=== PATIENT | male | born 1945 | race Caucasian/White ===

== ENCOUNTER 2017-08-03 09:30 | Emergency (ER) | payer MEDICARE ==
[~2017-08-03] VITALS: Ht 172.7 cm; Wt 63.6 kg
[~2017-08-03 09:30] MED LIST: KEFLEX500 MG PO; MOTRIN600 MG OR
[2017-08-03] MEDS ORDERED: MULTIVITAMI1 PO (09:56)
[2017-08-03] MEDS ORDERED: VITAMIN B-12500 MCG PO (09:56)
[2017-08-03] MEDS ORDERED: FLUOROURACIL 5% TOP (09:57)
[2017-08-03 10:38] LABS: URINE BILIRUBIN - DIPSTICK NEGATIVE (NEGATIVE); URINE BLOOD DIPSTICK NEGATIVE (NEGATIVE); URINE CLARITY CLOUDY; URINE COLOR YELLOW; URINE GLUCOSE - DIPSTICK NEGATIVE (NEGATIVE); URINE KETONE NEGATIVE (NEGATIVE); URINE LEUK ESTERASE TRACE (NEGATIVE); URINE NITRITE - DIPSTICK NEGATIVE (Negative); URINE PH >=9.0 (4.5-8.0); URINE PROTEIN - DIPSTICK 100 mg/dL (NEG-TRACE); URINE SPECIFIC GRAVITY <=1.005; URINE UROBILINOGEN - DIPSTICK 0.2 E.U./dL (0.2)
[2017-08-03 10:38] LABS: HEMATOCRIT 34.1 % (39.0-50.0); HEMOGLOBIN 11.2 g/dl (14.0-18.0); IMMATURE GRANULOCYTES 0.7 % (0.0-1.0); MEAN CELL VOLUME 99.4 fL CALC (80.0-100.0); MEAN CORPUSCULAR HGB 32.7 pG CALC (26.0-32.0); MEAN CORPUSCULAR HGB CONC 32.8 g/L CALC (32.0-36.0); NEUT# 12.11 thou/uL (1.82-7.42); RED BLOOD COUNT 3.43 mill/uL (4.70-6.10)
[2017-08-03 10:44] LABS: URINE RBC 0-2 RBC/hpf (0-5)
[2017-08-03 10:45] LABS: URINE AMORPH SEDIMENT MANY hpf (NONE-FER); URINE MUCUS MODERATE hpf (NONE-FEW); URINE TRIP PHOS CRYSTALS MANY lpf
[2017-08-03 10:56] LABS: ALBUMIN 4.1 g/dL (3.2-5.0); ALKALINE PHOSPHATASE 76 u/l (38-126); AMYLASE < 30 u/l (30-110); ANION GAP 18 (6-22 (CALC)); BILIRUBIN, TOTAL 0.8 mg/dL (0.0-1.4); BUN 25 mg/dL (8-23); BUN/CREATININE RATIO 18 (12-20 (CALC)); CALCIUM 9.6 mg/dL (8.4-10.2); CARBON DIOXIDE 22 mmol/l (22-30); CHLORIDE 103 mmol/l (95-108); CREATININE 1.4 mg/dL (0.7-1.3); GFR 50 ML/MIN (>=60 (CALC)); GFR FOR AFR.AMER. 60 ML/MIN (>=60 (CALC)); GLUCOSE 134 mg/dL (82-115); LIPASE 18 u/l (23-300); POTASSIUM 4.3 mmol/l (3.5-5.1); PROTHROMBIN TIME 11.3 SECONDS (9.0-12.5); SGOT/AST 27 u/l (19-48); SGPT/ALT 35 u/l (11-66); SODIUM 138 mmol/l (137-146)
[2017-08-03 11:08] LABS: MYOGLOBIN 45 ng/mL (0 - 121)
[2017-08-03] MEDS ORDERED: ZOFRAN4 MG/TAB PO (15:01)
[2017-08-03] MEDS ORDERED: CEPHALEXIN500 MG PO (15:01)
[2017-08-03 15:48] VITALS: BP 136/75
[2017-08-04] MEDS ORDERED: BACTRIM DS1 TAB PO (08:17)
== END 2017-08-03 15:46 | disposition home or self-care (01) ==
LOC: ED 09:30
PROVIDERS: Emergency Medicine
DX: N39.0 Urinary tract infection, site not specified (principal); R53.1 Weakness; I71.02 Dissection of abdominal aorta; C67.9 Malignant neoplasm of bladder, unspecified; Z79.899 Other long term (current) drug therapy; F17.210 Nicotine dependence, cigarettes, uncomplicated; K44.9 Diaphragmatic hernia without obstruction or gangrene; B96.1 Klebsiella pneumoniae [K. pneumoniae] as the cause of diseases classified elsewhere
CPT/HCPCS: Q9967

== ENCOUNTER 2018-01-13 23:19 | Inpatient (IN) | payer MEDICARE ==
[~2018-01-13] VITALS: Ht 172.7 cm; Wt 64.4 kg
[~2018-01-13 23:19] MED LIST changes: +BACTRIM DS1 TAB PO; +CEPHALEXIN500 MG PO; +FLUOROURACIL 5% TOP; +MULTIVITAMI1 PO; +VITAMIN B-12500 MCG PO; +ZOFRAN4 MG/TAB PO
--- NOTE | 2018-01-13 23:31 | NUR ---
A/O M WITH DYSPNEA,CERTIFIED MEDICAL CODER COUGH NO CP X 1 WEEK,FINISHED ABX 1 WEEK AGO BUT UNABLE TO PURCHASE INHALER MED PT SMOKES 1&1/2 PPD
[2018-01-14] VITALS (8 sets, daily range): BP systolic 118–168; BP diastolic 63–89
[2018-01-14 00:23] LABS: HEMATOCRIT 29.9 % (39.0-50.0); HEMOGLOBIN 9.6 g/dl (14.0-18.0); IMMATURE GRANULOCYTES 0.3 % (0.0-1.0); MEAN CELL VOLUME 96.8 fL CALC (80.0-100.0); MEAN CORPUSCULAR HGB 31.1 pG CALC (26.0-32.0); MEAN CORPUSCULAR HGB CONC 32.1 g/L CALC (32.0-36.0); NEUT# 3.39 thou/uL (1.82-7.42); RED BLOOD COUNT 3.09 mill/uL (4.70-6.10); RED CELL DISTRI WIDTH 16.4 % (11.5-15.5)
[2018-01-14 00:35] LABS: ALBUMIN 3.4 g/dL (3.2-5.0); ALKALINE PHOSPHATASE 83 u/l (38-126); BILIRUBIN, TOTAL 0.5 mg/dL (0.0-1.4); BUN 24 mg/dL (8-23); BUN/CREATININE RATIO 19 (12-20 (CALC)); CARBON DIOXIDE 22 mmol/l (22-30); CHLORIDE 105 mmol/l (95-108); CREATININE 1.3 mg/dL (0.7-1.3); GFR 54 ML/MIN (>=60 (CALC)); GFR FOR AFR.AMER. > 60 ML/MIN (>=60 (CALC)); SGOT/AST 28 u/l (19-48); SGPT/ALT 36 u/l (11-66); SODIUM 140 mmol/l (137-146); TOTAL PROTEIN 7.3 g/dL (6.3-8.2)
[2018-01-14 00:43] LABS: ANION GAP 16 (6-22 (CALC)); POTASSIUM 3.4 mmol/l (3.5-5.1)
[2018-01-14 00:47] LABS: MYOGLOBIN 40 ng/mL (0 - 121)
[2018-01-14 01:04] LABS: PROTHROMBIN TIME 22.2 SECONDS (9.0-12.5)
[2018-01-14 01:13] LABS: ACT PARTIAL THROMBO TIME > 320.0 SECONDS (20.0-32.5)
--- NOTE | 2018-01-14 02:00 | NUR ---
PT SAYS HE FEELS BETTER NOW
[2018-01-14 02:22] LABS: URINE BILIRUBIN - DIPSTICK NEGATIVE (NEGATIVE); URINE BLOOD DIPSTICK NEGATIVE (NEGATIVE); URINE COLOR YELLOW; URINE GLUCOSE - DIPSTICK NEGATIVE (NEGATIVE); URINE KETONE NEGATIVE (NEGATIVE); URINE LEUK ESTERASE TRACE (NEGATIVE); URINE NITRITE - DIPSTICK NEGATIVE (Negative); URINE PROTEIN - DIPSTICK NEGATIVE (NEG-TRACE); URINE SPECIFIC GRAVITY 1.015; URINE UROBILINOGEN - DIPSTICK 0.2 E.U./dL (0.2)
[2018-01-14 02:28] LABS: URINE CLARITY CLOUDY
--- NOTE | 2018-01-14 02:44 | NUR ---
PHONE REPORT TO NURSE BEACH IN ICU
--- NOTE | 2018-01-14 02:55 | NUR ---
PT HAS VOIDED 1100CC URINE THUS FAR IN ER
--- NOTE | 2018-01-14 03:15 | NUR ---
PT TO ICU BED 4 VIA STRETCHER ACCOMPANIED BY ER STAFF. PT ABLE TO TRANSFER FROM STRETCHER TO BED WITH MINIMAL ASSISTANCE. ADMISSION ASSESSMENT COMPLETED AT THIS TIME. PT IS ALERT AND ORIENTED X3. PERRLA. RESP ARE EVEN AND UNLABORED. TACHYPNEIC. LUNGS ARE DIMINISHED THROUGHOUT WITH INSPIRATORY WHEEZING NOTED ON THE RIGHT. HR REGULAR. SR WITH A 1ST DEGREE AVB AND PVC'S NOTED ON MONITOR. NO EDEMA NOTED. PULSES PALPABLE THROUGHOUT. BS ACTIVE. PT REPORTS HAVING A NORMAL BM YESTERDAY. UROSTOMY BAG IN PLACE. PORT ACCESSED TO RIGHT CHEST. NO REDNESS OR EDEMA NOTED. ORIENTED TO CALL SYSTEM. CALL LIGHT IN REACH. WILL CONTINUE TO MONITOR
--- NOTE | 2018-01-14 03:20 | NUR ---
TO ICU VIA ATRETCHER MONITOR,RN ESCORT IN STABLE IMPROVED CONDITION
--- NOTE | 2018-01-14 04:37 | NUR ---
AM LABS DRAWN FROM PORT AND GIVEN TO DOG HANDLER. FLUSHED WITH SALINE 10CC POST LAB DRAW.
--- NOTE | 2018-01-14 05:24 | NUR ---
DR ACEVES NOTIFIED OR CRITICAL LAB TROPONIN 0.133
--- NOTE | 2018-01-14 06:05 | NUR ---
PT RESTING IN BED. RESP ARE EVEN AND UNLABORED. NO DISTRESS NOTED. CALL LIGHT IN REACH WILL CONTINUE TO CLOSELY MONITOR
--- NOTE | 2018-01-14 08:00 | NUR ---
PT SEEN AWAKE, ALERT, AMBULATORY IN ROOM. PT IS SHORT OF BREATH WITH MINIMAL EXERTION. LUNGS DIMINISHED, SLIGHT CRACKLES IN BASES, RA. RIGHT CHEST PORT. UROSTOMY RIGHT LOWER ABDOMEN. NO CHEST PAIN, NO COMPLAINTS OF SOB.
--- NOTE | 2018-01-14 12:00 | NUR ---
PT CONTINUES BEFORE, NO DISTRESS, NO COMPLAINTS OF CHEST PAIN. PT ON NITROGLYCERIN DRIP AT THIS TIME PER ORDERS. TROPONIN DOWN TO 0.111.
--- NOTE | 2018-01-14 15:27 | NUR ---
PT REMAINS AT REST IN THE BED, NTG DRIP INFUSING, NO COMPLAINT OF CHEST PAIN OR OTHERWISE.
--- NOTE | 2018-01-14 18:22 | NUR ---
DR ACEVES HAS ROUNDED ON PT, WOULD PREFER HIM TO BE TRANSFERRED TO [facility] FOR ECHOCARDIOGRAM AND FURTHER CARDIOLOGICAL EVALUATION. PT AND FAMILY IN AGREEMENT, AWAITING ROOM NUMBER FROM [facility].
--- NOTE | 2018-01-14 19:09 | NUR ---
[facility] HERE FOR TRANSPORT TO [facility].
--- NOTE | 2018-01-14 19:26 | NUR ---
PT LEAVES FOR [facility] AT T HIS TIME VIA [facility], REPORT WAS TO RADHA NURSE FOR [id number].
== END 2018-01-14 19:25 | disposition short-term general hospital (02) | DRG 281 ==
LOC: ED 23:19 → ED-I 01-14 01:45 → ED 01-14 02:33 → ICU 01-14 02:34
PROVIDERS: Emergency Medicine; ADMIT Hospitalist; ATTEND Hospitalist
DX: I21.4 Non-ST elevation (NSTEMI) myocardial infarction (principal); I16.1 Hypertensive emergency; C61 Malignant neoplasm of prostate; I50.9 Heart failure, unspecified; I11.0 Hypertensive heart disease with heart failure; D64.9 Anemia, unspecified; I71.4 Abdominal aortic aneurysm, without rupture; I73.9 Peripheral vascular disease, unspecified; F17.210 Nicotine dependence, cigarettes, uncomplicated; Z85.51 Personal history of malignant neoplasm of bladder; Z90.6 Acquired absence of other parts of urinary tract; Z93.6 Other artificial openings of urinary tract status; Z92.21 Personal history of antineoplastic chemotherapy
CPT/HCPCS: J1650

== ENCOUNTER 2018-02-09 11:10 | Emergency (ER) | payer MEDICARE ==
[~2018-02-09] VITALS: Ht 172.7 cm; Wt 60.0 kg
[2018-02-09 11:39] LABS: HEMATOCRIT 35.7 % (39.0-50.0); HEMOGLOBIN 11.3 g/dl (14.0-18.0); IMMATURE GRANULOCYTES 0.8 % (0.0-1.0); MEAN CELL VOLUME 95.7 fL CALC (80.0-100.0); MEAN CORPUSCULAR HGB 30.3 pG CALC (26.0-32.0); MEAN CORPUSCULAR HGB CONC 31.7 g/L CALC (32.0-36.0); NEUT# 7.15 thou/uL (1.82-7.42); RED BLOOD COUNT 3.73 mill/uL (4.70-6.10); RED CELL DISTRI WIDTH 17.6 % (11.5-15.5)
[2018-02-09 12:01] LABS: CREATININE 1.5 mg/dL (0.7-1.3)
[2018-02-09 12:03] LABS: POTASSIUM 5.3 mmol/l (3.5-5.1)
[2018-02-09 12:18] LABS: PROTHROMBIN TIME 11.4 SECONDS (9.0-12.5)
[2018-02-09 12:26] LABS: INFLUENZA A NONE DETECTED (NONE DETECT); INFLUENZA B NONE DETECTED (NONE DETECT)
[2018-02-09 13:50] VITALS: BP 143/64
[2018-02-09] MEDS ORDERED: NIFEDIPINE60 MG PO (14:11)
[2018-02-09] MEDS ORDERED: EQ ASPIRIN81 MG PO (14:11)
[2018-02-09] MEDS ORDERED: METOPROL TAR25 MG PO (14:11)
[2018-02-09] MEDS ORDERED: IPRATROPIU0.5 MG/3 M IN (14:12)
[2018-02-09] MEDS ORDERED: KLOR-CON 1010 MEQ PO (14:12)
[2018-02-09] MEDS ORDERED: LIPITOR20 MG PO (14:13)
[2018-02-09] MEDS ORDERED: AMBIEN5 MG PO (14:13)
== END 2018-02-09 14:10 | disposition short-term general hospital (02) ==
LOC: ED 11:10
PROVIDERS: Family Medicine
DX: I11.0 Hypertensive heart disease with heart failure (principal); I50.9 Heart failure, unspecified; I25.10 Atherosclerotic heart disease of native coronary artery without angina pectoris; I71.4 Abdominal aortic aneurysm, without rupture; F17.210 Nicotine dependence, cigarettes, uncomplicated; Z85.51 Personal history of malignant neoplasm of bladder; Z92.21 Personal history of antineoplastic chemotherapy; Z95.1 Presence of aortocoronary bypass graft